=== PATIENT | male | born 1945 | race Caucasian/White ===

== ENCOUNTER 2018-01-13 09:57 | Emergency (ER) | payer MEDICARE, OTHER ==
[~2018-01-13] VITALS: Ht 195.6 cm; Wt 95.5 kg
[2018-01-13 09:58] VITALS: BP 161/83; PULSE 63; RESP 16; TEMP 98; O2SAT 98
[2018-01-13] MEDS ORDERED: AMLO10TA2 PO (10:08)
[2018-01-13] MEDS ORDERED: LISI10TA3 PO (10:08)
[2018-01-13] MEDS ORDERED: LEVO175T2 PO (10:08)
--- NOTE | 2018-01-13 10:11 | PD ---
HPI Chief Complaint: Medication Refill Request Time Seen by Provider: 10:03 Travel History International Travel<30 days: No Contact w/Intl Traveler<30days: No Traveled to known affect area: No History of Present Illness HPI 72-year-old male with history of hypertension and hypothyroidism presents requesting medication refill. The patient reports that he is on vacation from [place], arrived yesterday, and forgot his amlodipine, lisinopril levothyroxine. He reports that he has been on these medications for 6-7 years. He is asymptomatic. [facility] Past Medical History Hypertension: Yes Thyroid Disease: Yes Social History Alcohol Use: No Tobacco Use: No Allergies-Medications (Allergen,Severity, Reaction): Coded Allergies: No Known Allergies (Verified Allergy, Unknown, 01/13/18) Reported Meds & Prescriptions Reported Meds & Active Scripts Active Levothyroxine (Levothyroxine Sodium) 175 Mcg Tab 175 Mcg PO DAILY Lisinopril 10 Mg Tab 10 Mg PO DAILY Amlodipine (Amlodipine Besylate) 10 Mg Tab 10 Mg PO DAILY Review of Systems General / Constitutional: No: Fever, Chills Eyes: No: Blurred Vision HENT: No: Headaches Cardiovascular: No: Chest Pain or Discomfort Respiratory: No: Shortness of Breath Gastrointestinal: No: Nausea, Vomiting, Abdominal Pain Physical Exam Narrative GENERAL: Well-developed well-nourished male in no acute distress sitting upright in hospital bed SKIN: Warm and dry. HEAD: Atraumatic. Normocephalic. EYES: Pupils equal and round. No scleral icterus. No injection or drainage. ENT: No nasal bleeding or discharge. Mucous membranes pink and moist. NECK: Trachea midline. No JVD. CARDIOVASCULAR: Regular rate and rhythm. No murmur appreciated. RESPIRATORY: No accessory muscle use. Clear to auscultation. Breath sounds equal bilaterally. GASTROINTESTINAL: Abdomen soft, non-tender, nondistended. Hepatic and splenic margins not palpable. Data Data Last Documented VS Vital Signs Date Time Temp Pulse Resp B/P (MAP) Pulse Ox O2 Delivery O2 Flow Rate FiO2 01/13/18 09:58 98.0 63 16 161/83 (109) 98 MDM Medical Decision Making Medical Screen Exam Complete: Yes Emergency Medical Condition: Yes Medical Record Reviewed: Yes Differential Diagnosis Medication refill, hypertensive urgency, medication noncompliance Narrative Course The patient will be given a refill of his lisinopril, amlodipine and levothyroxine. Diagnosis Primary Impression: Medication refill Med/Other Pt SpecificInfo: Prescription(s) given Scripts Levothyroxine (Levothyroxine) 175 Mcg Tab 175 MCG PO DAILY for Thyroid, #30 TAB 0 Refills Prov: Cy Basilio MD 01/13/18 Lisinopril (Lisinopril) 10 Mg Tab 10 MG PO DAILY, #30 TAB 0 Refills Prov: Cy Basilio MD 01/13/18 Amlodipine (Amlodipine) 10 Mg Tab 10 MG PO DAILY for Blood Pressure Management, #30 TAB 0 Refills Prov: Cy Basilio MD 01/13/18 Disposition: 01 DISCHARGE HOME Condition: Stable Bear Zamora January 13, 2018 10:11
== END 2018-01-13 10:32 | disposition home or self-care (01) ==
LOC: NEPD 09:57
DX: Z76.0 Encounter for issue of repeat prescription (principal); I10 Essential (primary) hypertension; E03.9 Hypothyroidism, unspecified
CPT/HCPCS: 99281